=== PATIENT | female | born 1945 | race Caucasian/White ===

== ENCOUNTER → 2022-12-10 | Outpatient (CLI) | payer MEDICARE | END | disposition home or self-care (01) | LOC: RAH 10:27 | PROVIDERS: ATTEND Family Medicine | DX: Z12.31 Encounter for screening mammogram for malignant neoplasm of breast (principal) | CPT/HCPCS: 77067 ==

== ENCOUNTER → 2023-06-05 | Outpatient (CLI) | payer MEDICARE | END | disposition home or self-care (01) | LOC: RAH 08:43 | PROVIDERS: ATTEND Family Medicine | DX: K76.89 Other specified diseases of liver (principal); K43.2 Incisional hernia without obstruction or gangrene | CPT/HCPCS: 76700 ==

== ENCOUNTER → 2025-04-04 | Outpatient (CLI) | payer MEDICARE ==
--- NOTE | 2025-04-04 15:33 | HMCIMG ---
EXAM: CR right Wrist, 3 View. CLINICAL HISTORY: RIGHT WRIST PAIN COMPARISON: None provided. FINDINGS: BONES: No acute osseous abnormality. No acute fracture. JOINTS: No dislocation. The carpal bones demonstrate normal alignment. D the bony structures appear demineralized. Degenerative joint disease changes carpal???first metacarpal joint SOFT TISSUES: Focal posterior/dorsal soft tissue swelling IMPRESSION: 1. No acute osseous injury. 2. Focal dorsal soft tissue swelling. Consider hematoma 3. Osteopenia and first carpometacarpal degenerative changes. /Joy
== END | disposition home or self-care (01) ==
LOC: RAH 14:03
PROVIDERS: ATTEND Family Medicine
DX: M18.11 Unilateral primary osteoarthritis of first carpometacarpal joint, right hand (principal); M85.841 Other specified disorders of bone density and structure, right hand; M79.89 Other specified soft tissue disorders; M25.531 Pain in right wrist
CPT/HCPCS: 73110

== ENCOUNTER 2025-07-26 19:35 | Emergency (ER) | payer MEDICARE ==
[~2025-07-26] VITALS: Ht 152.4 cm; Wt 52.6 kg
--- NOTE | 2025-07-26 19:50 | ERN ---
ED Note History of Present Illness Stated Complaint: C/O NOSE BLEED ONSET 0900 THIS AM Chief Complaint: Nosebleed Time Seen by MD: 19:41 Dictation: PATIENT IS A 80-YEAR-OLD FEMALE COMING IN TODAY WITH BILATERAL EPISTAXIS ONSET 0 900 THIS MORNING SHE STATES SHE DOES NOT HAVE A HEADACHE NO HISTORY OF HYPERTENSION. SHE STATES SHE HAS HAS A HISTORY OF PRIOR EPISTAXIS IN THE PAST LONG 2-3 YEARS AGO. IT SHE HAD SEEN AN ENT AT THE SAME TIME HOWEVER NOTHING WAS DONE TO STOP THE RECURRENT EPISTAXIS. SHE STATES SHE CALLED HER PRIMARY CARE DOCTOR, DR. ORIANA JAMISON THIS AFTERNOON AT 15:00 HOURS AND WAS TOLD TO HOLD PRESSURE. HE DENIES ANY BLOOD THINNERS. STATES SHE HAS BEEN TAKING TYLENOL WITH THE ASPIRIN RECENTLY COULD NOT TELL ME THE BRAND. Allergies: Coded Allergies: Penicillins (Unverified Allergy, Unknown, 07/26/25) Past Medical History Past Medical History: Other (RECURRENT EPISTAXIS) Surgical History: Hysterectomy, Tonsillectomy History: Not Applicable RN Note Reviewed/Agreed w/PFSH: Yes Review of System Dictation CONSTITUTIONAL: NEGATIVE EXCEPT FOR HPI HEAD/FACE: NEGATIVE EXCEPT FOR HPI EENT: NEGATIVE EXCEPT FOR HPI BILATERAL EPISTAXIS RESPIRATORY: NEGATIVE EXCEPT FOR HPI GASTROINTESTINAL/ABDOMINAL: NEGATIVE EXCEPT FOR HPI GENITOURINARY: NEGATIVE EXCEPT FOR HPI MUSCULOSKELETAL: NEGATIVE EXCEPT FOR HPI INTEGUMENTARY: NEGATIVE EXCEPT FOR HPI NEUROLOGICAL/PSYCH: NEGATIVE EXCEPT FOR HPI HEMATOLOGIC/LYMPHATIC: NEGATIVE EXCEPT FOR HPI ALL SYSTEMS NEGATIVE, EXCEPT NOTED ABOVE. 13 POINT REVIEW OF SYSTEMS ASSESSED AND ALL NEGATIVE EXCEPT FOR ABOVE. Initial Vital Sign VS Vital Signs Date Time Temp Pulse Resp B/P (MAP) Pulse Ox O2 Delivery O2 Flow Rate FiO2 07/26/25 19:38 98.4 94 20 157/87 97 Room Air 07/26/25 19:49 0 21 Physical Exam Dictation VITAL SIGNS REVIEWED GENERAL APPEARANCE: ALERT, ORIENTED X 3, NO ACUTE DISTRESS, WELL DEVELOPED, NOURISHED. HEAD AND FACE: NON-TRAUMATIC. EYES: PERRL, PINK CONJUNCTIVAS, EYELID NO TRAUMA, ANTERIOR CHAMBER WITH ARCUS SENILIS. EARS: PINNAS INTACT AND NO SIGNS OF TRAUMA OR ERYTHEMA EAR CANALS CLEAR AND NO DISCHARGE TM NO ERYTHEMA NOSE: BILATERAL EPISTAXIS, POSTERIOR BILATERAL OROPHARYNX: MOUTH NORMAL, TONGUE PINK, BLOOD IN OROPHARYNX PHARYNX CLEAR,NO ERYTHEMA, TONSILS NO EXUDATES, NO ABSCESSES NOTED, MUCOUS MEMBRANE MOIST NECK: SUPPLE, NON-TENDER, NO THYROMEGALY, NO MASSES, NO JVD, NO BRUITS BREAST:DEFERRED CHEST:NO TENDERNESS, NO CREPITUS, NO PARADOXICAL MOVEMENT, NO RETRACTIONS LUNGS:CLEAR, WELL-VENTILATED, SYMMETRIC, NO RALES, NO WHEEZING, NO RHONCHI, NO STRIDOR, GOOD BREATH SOUNDS BILATERALLY HEART: REGULAR RATE, REGULAR RHYTHM, NO MURMUR, NO GALLOPS VASCULAR: NO PERIPHERAL EDEMA, ABDOMEN: SOFT, POSITIVE BOWEL SOUNDS, NONDISTENDED, NO GUARDING, NONTENDER, NO REBOUND, NO MASSES NO HEPATOMEGALY, NO SPLENOMEGALY, NO HAIDER'S SIGN, NO HERNIAS. RECTAL: DEFERRED GENITAL: DEFERRED NEUROLOGICAL: NORMAL SPEECH, MOTOR FUNCTION INTACT, SENSORY FUNCTION INTACT MUSCULOSKELETAL: NECK NONTENDER, FULL RANGE OF MOTION, BACK NONTENDER, FULL RANGE OF MOTION, EXTREMITIES: NONTENDER, FULL RANGE OF MOTION SKIN: COLOR PINK, DRY, NO TURGOR, NO RASH, NO LACERATIONS, NO ABRASIONS, NO CONTUSIONS. LYMPHATIC: DEFERRED Results (Laboratory/Radiology) Laboratory/Radiology Laboratory Tests Test 07/26/25 19:55 White Blood Count 6.5 K/uL (4.8-10.8) Red Blood Count 3.93 MIL/uL (4.00-5.50) L Hemoglobin 12.1 g/dL (12.0-16.0) Hematocrit 37.1 % (36-48) Mean Corpuscular Volume 94.4 fL (79-99) Mean Corpuscular Hemoglobin 30.8 pg (27.0-33.0) Mean Corpuscular Hemoglobin Concent 32.6 g/dL (32.0-36.0) Red Cell Distribution Width 13.4 % (11.0-15.5) Platelet Count 366 K/uL (130-400) Mean Platelet Volume 9.0 fL (7.5-10.5) Immature Granulocyte % (Auto) 0.2 % (0-1) Neutrophils (%) (Auto) 48.4 % (40.0-77.0) Lymphocytes (%) (Auto) 37.8 % (21.0-51.0) Monocytes (%) (Auto) 8.4 % (3.0-13.0) Eosinophils (%) (Auto) 3.8 % (0.0-8.0) Basophils (%) (Auto) 1.4 % (0.0-5.0) Neutrophils # (Auto) 3.2 K/uL (1.8-7.7) Lymphocytes # (Auto) 2.5 K/uL (1.0-4.8) Monocytes # (Auto) 0.6 K/uL (0.1-1.0) Eosinophils # (Auto) 0.25 K/uL (0.00-0.70) Basophils # (Auto) 0.09 K/uL (0.00-0.20) Absolute Immature Granulocyte (auto 0.01 K/uL (0-1) Nucleated Red Blood Cells 0.0 % (0.0-0.19) Prothrombin Time 10.7 SEC (9.6-11.6) Prothromb Time International Ratio 1.01 (0.85-1.15) Activated Partial Thromboplast Time 28.0 SEC (26.3-35.5) Sodium Level 137 mmol/L (136-145) Potassium Level 4.0 mmol/L (3.5-5.1) Chloride Level 100 mmol/L (101-111) L Carbon Dioxide Level 29 mmol/L (21-32) Blood Urea Nitrogen 23 mg/dL (7-18) H Creatinine 0.7 mg/dL (0.5-1.0) Glomerular Filtration Rate Calc 88 mL/min (>90) Random Glucose 104 mg/dL (70-105) Total Calcium 9.1 mg/dL (8.5-10.1) Labs Reviewed?: Yes ED Course ED Course Orders Procedure Category Date Status Time Pt And Ptt LAB 07/26/25 Complete 19:45 Cbc With Differential LAB 07/26/25 Complete 19:45 Basic Metabolic Panel LAB 07/26/25 Complete 19:45 Oxymetazoline Hcl PHA 07/26/25 Complete [place] (Afrin) 20:00 Current Medications Medications (Trade) Dose Ordered Sig/Bryant Route PRN Reason Start Time Stop Time Status Last Admin Dose Admin Oxymetazoline HCl (AFrin) 3 sprays ONCE ONCE EN 07/26/25 20:00 07/26/25 20:01 DC 07/26/25 19:55 Vital Signs Date Time Temp Pulse Resp B/P (MAP) Pulse Ox O2 Delivery O2 Flow Rate FiO2 07/26/25 19:49 98.4 94 20 157/87 97 Room Air* 0 21 07/26/25 19:38 98.4 94 20 157/87 97 Room Air 2030/RE-EVALUATED PATIENT AFTER OXYMETAZOLINE. LEFT MALONE BLEED IS TAMPONADED. SCANT BLEEDING TO THE RIGHT MALONE AND TWO MORE BRACE OF OXYMETAZOLINE WERE APPLIED. PATIENT HOLDING DIRECT [id number]/ 2105/BOTH SIDES BLEEDING NOW TAMPONADED. PATIENT WILL BE DISCHARGED HOME WITH A OXIMETER HAS A LOAN TWO SPRAYS EVERY 6 HOURS FOR THE NEXT TWO DAYS GIVEN INFORMATION ON DIRECT PRESSURE FOLLOW UP WITH HER PRIMARY CARE DOCTOR FOR ENT REFERRAL Medical Decision Making MDM MEDICAL DECISION-MAKING BASED ON BASIC LABS TO INCLUDE PT PTT FOR EPISTAXIS ALL LABS UNREMARKABLE INR WITH A NORMAL LIMITS PATIENT TREATED WITH OXYMETAZOLINE ALONE NO FURTHER BLEEDING AFTER TREATMENT AND DIRECT PRESSURE. PATIENT GIVEN FURTHER INSTRUCTIONS FOR TREATMENT AT HOME ALL QUESTIONS ANSWERED DX & DISP Disposition: Discharge Departure Impression: Primary Impression: Posterior epistaxis Additional Impression: Recurrent epistaxis Condition: Stable Additional Instructions: FOLLOW-UP WITH PRIMARY CARE PROVIDER IN 1 TO 2 DAYS. TAKE MEDICATIONS DIRECTED HERE IN THE EMERGENCY ROOM. OKAY TO CONTINUE HOME MEDICATIONS UNLESS OTHERWISE DISCUSSED DURING YOUR VISIT IN THE EMERGENCY ROOM TODAY. RETURN TO YOUR NEAREST EMERGENCY ROOM IF SYMPTOMS WORSEN OR IF THERE IS NO IMPROVEMENT. CALL 911 IF YOU NEED IMMEDIATE ASSISTANCE. TAKE TYLENOL OR MOTRIN QURP-OLO-AEXDPRC NEEDED AND IF NO CONTRAINDICATIONS ARE PRESENT. INCREASE ORAL HYDRATION. A WOUND CULTURE OR URINE CULTURE WAS ORDERED HERE IN THE EMERGENCY ROOM DEPARTMENT PLEASE FOLLOW-UP WITH PRIMARY CARE PROVIDER AND ADVISE THEM TO GET REPEAT PORTS FROM OUR FACILITY. IF YOU HAD ANY MAGUE WRAP/SPLINTS THAT WERE APPLIED HERE, PLEASE DO NOT REMOVE THEM UNTIL YOU SEE YOUR PRIMARY CARE OR SPECIALTY. USE TWO SPRAYS OF NASAL SPRAY EVERY 6 HOURS FOR THE NEXT TWO DAYS. TRY NOT TO BLOW YOUR NOSE FOLLOW UP WITH THE YOUR PRIMARY CARE DOCTOR FOR ENT REFERRAL RETURNED TO THE EMERGENCY ROOM IF UNABLE TO CONTROL BLEEDING Referrals: ORIANA JAMISON MD (PCP) Time of Disposition: 21:06 I have reviewed the case, and I agree with, Diagnosis and Plan MAYO GUTIERREZ Jul 26, 2025 19:50
[2025-07-26] MEDS: OXYmetazoline HCL SPRAY 100 SPRAYS/15 ML BOTTLE EN ONE (19:55)
[2025-07-26 20:00] LABS: IMMATURE GRANULOCYTE ABSOLUTE 0.01 K/uL (0-1); NUCLEATED RED BLOOD CELLS 0.0 % (0.0-0.19); PLATELET COUNT (AUTO) 366 K/uL (130-400); RED BLOOD CELL COUNT(AUTO) 3.93 MIL/uL (4.00-5.50); RED CELL DISTRIBUTION WIDTH 13.4 % (11.0-15.5); WHITE BLOOD COUNT (AUTO) 6.5 K/uL (4.8-10.8)
[2025-07-26 20:11] LABS: INR 1.01 (0.85-1.15)
[2025-07-26 20:21] LABS: CREATININE 0.7 mg/dL (0.5-1.0); GLOMERULAR FILTR. RATE CALC 88.0 mL/min (>90); GLUCOSE,RANDOM 104.0 mg/dL (70-105); SODIUM SERUM 137.0 mmol/L (136-145); UREA NITROGEN, BLOOD 23.0 mg/dL (7-18)
[2025-07-26 21:40] VITALS: BP 142/74; PULSE 88; RESP 20; TEMP 98.4; O2SAT 97
== END 2025-07-26 21:41 | disposition home or self-care (01) ==
LOC: EDH 19:35
DX: R04.0 Epistaxis (principal); Z88.0 Allergy status to penicillin; Z90.710 Acquired absence of both cervix and uterus; Z90.89 Acquired absence of other organs
CPT/HCPCS: 30905; 36415; 80048; 85025; 85610; 85730; 99284